=== PATIENT | male | born 1980 | race Caucasian/White ===

== ENCOUNTER 2023-03-26 15:23 | Emergency (ER) | payer OTHER ==
[~2023-03-26] VITALS: Ht 177.8 cm; Wt 90.0 kg
[2023-03-26 15:26] VITALS: BP 191/115; PULSE 102; RESP 16; TEMP 98.6; O2SAT 99
[2023-03-26] MEDS ORDERED: MORPHINE SULFATE 4 MG/ML CPJ (NOT FOR IM USE) IV STA (15:30)
[2023-03-26 15:54] LABS: BASOPHILS % 0.6 % (0.0-2.0); EOSINOPHILS % 3.5 % (0.0-5.0); HEMATOCRIT. 50.1 % (42.0-52.0); LYMPHOCYTES % 38.3 % (20.0-50.0); MEAN CORPUSCULAR HEMOGLOBIN 30.3 pg (28.0-32.0); MEAN CORPUSCULAR VOLUME 89.4 fL (80.0-94.0); MEAN PLATELET VOLUME 7.2 fl (7.4-10.4); MONOCYTES % 8.6 % (2.0-8.0); PLATELET 239 x1000/uL (130-400); RED CELL DISTRIBUTION WIDTH 13.5 % (11.6-14.6)
[2023-03-26 15:56] LABS: CHLORIDE 107 mEq/L (98-107)
[2023-03-26 15:58] LABS: PROTHROMBIN TIME 10.9 sec (9.6-11.0)
== END 2023-03-26 16:01 | disposition left against medical advice (07) ==
LOC: ER 15:23
DX: R07.89 Other chest pain (principal); E11.9 Type 2 diabetes mellitus without complications; I10 Essential (primary) hypertension
CPT/HCPCS: 36415; 71045; 80053; 83880; 84484; 85025; 93005; 99285